=== PATIENT | male | born 1990 | race Caucasian/White ===

== ENCOUNTER 2025-08-03 04:03 | Inpatient (IN) | payer SELFPAY ==
[~2025-08-03] VITALS: Ht 170.2 cm; Wt 86.2 kg
[2025-08-03 04:11] VITALS: O2SAT 100
[2025-08-03 04:33] LABS: BASOPHILS % 0.7 % (0.0-2.0); EOSINOPHILS % 2.4 % (0.0-5.0); HEMATOCRIT. 49.2 % (42.0-52.0); HEMOGLOBIN. 16.4 g/dL (14.0-18.0); LYMPHOCYTES % 52.3 % (20.0-50.0); MEAN PLATELET VOLUME 8.3 fl (7.4-10.4); MONOCYTES % 6.9 % (2.0-8.0); NEUTROPHILS % 37.7 % (40.0-76.0); PLATELET 243 x1000/uL (130-400); RED BLOOD CELL COUNT 5.49 mill/uL (4.7-6.1); RED CELL DISTRIBUTION WIDTH 14.0 % (11.6-14.6)
[2025-08-03 04:41] LABS: CREATININE 1.3 mg/dL (0.6-1.3); UREA NITROGEN BLOOD 10 mg/dL (9-23)
[2025-08-03 04:43] LABS: TROPONIN I HIGH SENSITIVITY 4 ng/L (3.0-53)
[2025-08-03] MEDS: SODIUM CHLORIDE 0.9% 1,000 ML IV ONE (04:52)
[2025-08-03 06:17] LABS: ASPARTATE AMINOTRANSFERASE 40 IU/L (<34); BILIRUBIN DIRECT 0.1 mg/dL (<=3.0); BILIRUBIN TOTAL 0.4 mg/dL (0.1-1.0); PROTEIN TOTAL 8.0 g/dL (6.0-8.3)
[2025-08-03] MEDS ORDERED: MAGNESIUM/ALUMINUM HYDROXIDE/SIMETHICONE 30ML UDC PO PRN (09:00)
[2025-08-03] MEDS ORDERED: DOCUSATE SODIUM 100MG CAPSULE PO PRN (09:00)
[2025-08-03] MEDS ORDERED: ACETAMINOPHEN 325MG TABLET PO PRN ×2 (09:00)
[2025-08-03] MEDS ORDERED: CHLORDIAZEPOXIDE 25MG CAPSULE PO PRN (09:00)
[2025-08-03] MEDS ORDERED: ONDANSETRON HCL 4MG/2ML INJ IV PRN (09:00)
[2025-08-03] MEDS ORDERED: LORAZEPAM 2MG/ML UD SYRINGE IV PRN (09:00)
[2025-08-03] MEDS ORDERED: CLONIDINE 0.1MG TABLET PO PRN (09:00)
[2025-08-03] MEDS ORDERED: IPRATROPIUM/ALBUTEROL 0.5-3(2.5)MG/3ML NEB HHN PRN (09:00)
[2025-08-03] MEDS ORDERED: GUAIFENESIN 200MG/10ML SUGAR FREE UDC PO PRN (09:00)
[2025-08-03 09:30] LABS: CLARITY URINE CLEAR (CLEAR); COLOR URINE YELLOW (YELLOW); GLUCOSE URINE NEGATIVE (NEGATIVE); KETONES URINE TRACE (NEGATIVE); LEUKOCYTE ESTERASE URINE NEGATIVE (NEGATIVE); NITRITE URINE NEGATIVE (NEGATIVE); OCCULT BLOOD URINE NEGATIVE (NEGATIVE); PH URINE 5.0 (4.5-8.0); PROTEIN URINE TRACE (NEGATIVE); SPECIFIC GRAVITY URINE 1.013 (1.005-1.030); UROBILINOGEN URINE 0.2 E.U./dL (0.2-1.0)
[2025-08-03 09:53] LABS: *AMPHETAMINES SCREEN URINE NEGATIVE (NEGATIVE); *BARBITURATES SCREEN URINE NEGATIVE (NEGATIVE); *BENZODIAZEPINES SCREEN URINE NEGATIVE (NEGATIVE); *COCAINE SCREEN URINE NEGATIVE (NEGATIVE); CANNABINOID URINE SCREEN NEGATIVE (NEGATIVE); ECSTASY MDMA SCREEN URINE NEGATIVE (NEGATIVE); METHADONE URINE SCREEN NEGATIVE (NEGATIVE); OPIATES URINE SCREEN NEGATIVE (NEGATIVE); PHENCYCLIDINE URINE SCREEN NEGATIVE (NEGATIVE)
[2025-08-03 09:55] LABS: RBC URINE NONE SEEN /hpf (0-2); SQUAMOUS EPITHELIAL CELL URINE NONE SEEN /lpf (RARE/1+); WBC URINE 0-2 /hpf (0-2)
[2025-08-03 09:56] LABS: BACTERIA URINE NONE SEEN
[2025-08-03] MEDS: KCL 20MEQ/100ML PREMIX 100 ML IV ONE (10:09)
[2025-08-03] MEDS: PANTOPRAZOLE SODIUM 40 MG/VIAL IV SCH (11:11)
[2025-08-03] MEDS: FOLIC ACID 1 MG, THIAMINE HCL 100 MG, MVI, ADULT NO.1 10 ML in DEXTROSE 5% WATER 1,000 ML IV ONE (11:12)
[2025-08-03 16:00] VITALS: BP 125/72; PULSE 82; RESP 16; TEMP 36.4; O2SAT 99
[2025-08-03 16:05] VITALS: BP 125/77; PULSE 82; RESP 16; TEMP 36.4736
[2025-08-03 18:21] LABS: TROPONIN I HIGH SENSITIVITY 6 ng/L (3.0-53)
[2025-08-03 20:00] VITALS: BP 120/83; PULSE 78; RESP 18; TEMP 36.6; O2SAT 98
[2025-08-04] VITALS: BP 123/70; PULSE 77; RESP 20; TEMP 36.8; O2SAT 97
[2025-08-04 04:00] VITALS: BP 113/77; PULSE 68; RESP 18; TEMP 36.6; O2SAT 98
[2025-08-04 07:18] LABS: BASOPHILS % 0.4 % (0.0-2.0); EOSINOPHILS % 3.9 % (0.0-5.0); HEMATOCRIT. 45.0 % (42.0-52.0); HEMOGLOBIN. 15.2 g/dL (14.0-18.0); LYMPHOCYTES % 24.7 % (20.0-50.0); MEAN PLATELET VOLUME 8.1 fl (7.4-10.4); MONOCYTES % 9.3 % (2.0-8.0); NEUTROPHILS % 61.7 % (40.0-76.0); PLATELET 173 x1000/uL (130-400); RED BLOOD CELL COUNT 5.01 mill/uL (4.7-6.1); RED CELL DISTRIBUTION WIDTH 13.7 % (11.6-14.6)
[2025-08-04 07:30] LABS: T4 FREE 1.15 ng/dL (0.89-1.76)
[2025-08-04 07:36] LABS: CREATININE 1.2 mg/dL (0.6-1.3)
[2025-08-04 07:37] LABS: LDL CHOLESTEROL 101 mg/dL (5-100); TRIGLYCERIDE 189 mg/dL (0-150); UREA NITROGEN BLOOD 12 mg/dL (9-23)
[2025-08-04 08:00] VITALS: BP 118/60; PULSE 66; RESP 16; TEMP 36.6; O2SAT 99
[2025-08-04 12:00] VITALS: BP 116/62; PULSE 60; RESP 18; TEMP 36.6; O2SAT 98
[2025-08-04 12:17] VITALS: BP 120/70; PULSE 80; RESP 16; TEMP 97.2
== END 2025-08-04 13:46 | disposition home or self-care (01) | DRG 241 ==
LOC: ER 04:03 → UNDOADMIN 07:43 → 7WST 07:43 → 3WST 07:43 → EDBEDREQTM 07:52 → EDBEDREQ 07:52
PROVIDERS: ADMIT Internal Medicine; ATTEND Internal Medicine
DX: K29.20 Alcoholic gastritis without bleeding (principal); G92.8 Other toxic encephalopathy; D72.829 Elevated white blood cell count, unspecified; E87.6 Hypokalemia; F10.939 Alcohol use, unspecified with withdrawal, unspecified; F10.929 Alcohol use, unspecified with intoxication, unspecified; R00.0 Tachycardia, unspecified; Z79.899 Other long term (current) drug therapy
CPT/HCPCS: 36415; 71045; 80048; 80061; 80076; 80305; 80320; 81003; 82140; 83605; 83735; 83880; 84145; 84439; 84443; 84484; 85025; 93005; J2470; J3411; J3480; J3490; J7030; J7070; G0480